=== PATIENT | female | born 1965 | race Caucasian/White ===

== ENCOUNTER → 2020-05-05 08:45 | Outpatient (BNVA) | payer OTHER, SELFPAY | PROVIDERS: PCP Nurse Practitioner; Visit Provider Obstetrics & Gynecology | DX: O24.919 Unspecified diabetes mellitus in pregnancy, unspecified trimester (principal); Z12.4 Encounter for screening for malignant neoplasm of cervix; Z12.11 Encounter for screening for malignant neoplasm of colon; Z78.0 Asymptomatic menopausal state | CPT/HCPCS: 83036; 84443; 88175 ==

== ENCOUNTER 2020-05-21 09:58 | Outpatient (CLI) | payer OTHER, SELFPAY ==
--- NOTE | 2020-05-21 10:30 | MM_ITS ---
WS: [id number] BILATERAL DIGITAL SCREENING MAMMOGRAPHY WITH CAD CLINICAL INFORMATION: Z12.39 - Encounter for other screening for malignant neoplasm of breast HISTORY: Screening mammogram. No current complaints. COMPARISON: 018 TECHNIQUE: Bilateral CC and MLO views. FINDINGS: Scattered fibroglandular densities bilaterally. No suspicious focal mass, asymmetry, calcifications, or architectural distortion. No evidence of malignancy. MM/[place] [id number] IMPRESSION: BI-RADS: 1-Negative FOLLOW UP: 1 Year Follow-up Recommend return to annual screening mammography.
== END 2020-05-21 09:59 | disposition home or self-care (01) ==
LOC: RADSHAW 10:00
PROVIDERS: PCP Nurse Practitioner; Visit Provider Obstetrics & Gynecology
DX: Z12.31 Encounter for screening mammogram for malignant neoplasm of breast (principal)
CPT/HCPCS: 77067

== ENCOUNTER 2020-06-01 08:19 | Day surgery (SDC) | payer OTHER, SELFPAY ==
[2020-05-28 12:40] VITALS: BMI 27.8
--- NOTE | 2020-06-01 08:44 | W.PM.OPSUD ---
Surgery/Procedure H&P Update DATE OF PROCEDURE: June 01, 2020 DATE H&P PERFORMED: 05/21/20 PREOP DIAGNOSIS: c PLANNED PROCEDURE: Operation Date: 06/01/20 09:30 Proposed Procedures p Colonoscopy z12.11 56295(Not Applicable) - Baltazar Mistry MD
[2020-06-01 08:46] VITALS: BP 142/99; PULSE 78; RESP 18; TEMP 36.3; O2SAT 100
[2020-06-01] MEDS: sodium chloride 0.9% 1,000 ML 30 ML IV (09:04)
--- NOTE | 2020-06-01 09:44 | ANES.PREANE2 ---
Pre-Anesthetic Assessment Pre-Anesthetic Assessment: Height/Weight: Height 1.5 m Weight 62.596 kg Temp Pulse Resp BP Pulse Ox 97.3 F L 78 18 142/99 100 06/01/20 08:46 06/01/20 08:46 06/01/20 08:46 06/01/20 08:46 06/01/20 08:46 Preop Diagnosis: c Proposed Procedure: Operation Date: 06/01/20 09:30 Proposed Procedures p Colonoscopy z12.11 25164(Not Applicable) - Baltazar Mistry MD Last intake: Intake Last Liquid Date 05/31/20 Last Solid Date 05/30/20 Social: Social History: No alcohol and No tobacco Exam: Pre-Anes Outpt Exam: alert and oriented x 3 Airway: Submandibular: WNL Cervical ROM: WNL MP: 2 History/ROS: No significant history except as noted Pulmonary: Pulmonary: None reported CV/HEM: CV/HEM: None reported : Comments: adrenal gland mass removed and nephrectomy Hepatic: Hepatic: None reported GI: GI: None reported Metabolic: Metabolic: Thyroid Musc/skel: Musc/skel: None reported Neuropsych: Neuropsych: Anxiety Anesthetic Plan: ASA status: 2 Anesthesia: MAC Meds/Allergies Current Medications: Current Medications Generic Name Dose Route Start Last Admin Trade Name Freq PRN Reason Stop Dose Admin Sodium Chloride 1,000 mls @ 30 ml s/hr 06/01/20 08:45 06/01/20 09:04 Sodium Chloride 0.9% IV 06/02/20 08:44 30 mls/hr .Q24H LYUBOV Administration PFSH Anesthesia PFSH: Medical History (Updated 05/21/20 @ 13:30 by Baltazar Mistry MD) History of hysteroscopy (~09/06/17) Endometrial morcellation--Dr. Franz Hypertension Hypothyroidism Patient denies medical problems Denies history of: Diabetes, heart, lung, liver, bleeding problems, or clotting problems Postmenopausal Patient came in referring that she has started [id number] estrogen supplement and started to spot again. The patient had been prescribed combine HRT but she did not get the prescription because she refers she cannot afford the medication because she doesn't have medical insurance. She wants to use over the counter medications. She was counseled regarding herbal remedies that they are not FDA control. Supplemental she was taking have black cohosh and soy isoflavones. She was counseled these ingredient have estrogenic effect and since she has a uterus this can cause estrogen effect of the endometrial lining and lead to unopposed hyperstimulation of the endometrium causing AUB and hyperplasia of the endometrium that can lead to endometrial CA. She refers that she now also started with an over the counter progesterone cream called Ultra Pro 50 derived from [employer]. Again she was counseled regarding the lack of software quality specialist, with these over the counter remedies. She was advised to F/U in 3months. Patient came for follow-up on labs ordered due to menopause. She refers hot flashes are getting worse since she started using the topical natural hormone replacement supplement. Was counseled again regarding the lack of effectiveness and software quality specialist on this natural supplements. She had been prescribed HRT but she refers she cannot afford medication. She will try to get Medicaid. She was counseled again regarding the benefits of HRT interior her vasomotor symptoms and beneficial effect on bone density. She brought in paperwork from a program that will supply her with the HRT at no-cost. Follow-up in 3 months. Postmenopausal bleeding Counseled regarding postmenopausal bleeding. She refers she has not experienced any bleeding and the frequency of have flashes has decrease with the use of topical natural estrogen replacement cream cheese has been using. She was counseled regarding this non-FDA approved supplements. She reffered she wants to continue using them. F/U 3 months. Surgical History History of back surgery (~2010) Lumbar spine History of partial adrenalectomy (~02/2015) Family History Unknown Hypertension Patient denies medical problems Denies family history of: Hypercholesterolemia, Thyroid problems, Breast Cancer, Ovarian Cancer, Uterine Cancer, Colon Cancer Father Diabetes Stroke Mother Heart disease Denies family history of Colon cancer Ovarian cancer Clotting disorder Hyperlipidemia Breast cancer Anesthesia complication Bleeding disorder Uterine cancer Thyroid condition Social History Smoking and tobacco status: never smoked Alcohol intake: current Alcohol intake frequency: holidays/special occasions only Alcohol type: beer, wine and hard liquor Data Anesthesia Cardiac Studies: No Data to Display
[2020-06-01 10:04] VITALS: BP 89/52; PULSE 82; RESP 16; TEMP 36.7; O2SAT 98
[2020-06-01 10:14] VITALS: BP 86/61; PULSE 70; RESP 16; O2SAT 98
== END 2020-06-01 10:35 | disposition home or self-care (01) ==
PROVIDERS: PCP Nurse Practitioner; Visit Provider Internal Medicine
PROC: 0DJD8ZZ Inspection of Lower Intestinal Tract, Via Natural or Artificial Opening Endoscopic (ICD-10-PCS; CPT 45378; principal; 2020-06-01 09:30)
DX: Z12.11 Encounter for screening for malignant neoplasm of colon (principal); I10 Essential (primary) hypertension; E03.9 Hypothyroidism, unspecified
CPT/HCPCS: 45378; 96360; G0121; J2704; J7030

== ENCOUNTER 2020-12-03 06:54 | Outpatient (CLI) | payer OTHER, SELFPAY ==
[2020-12-03 07:21] VITALS: BMI 27.6
--- NOTE | 2020-12-03 07:24 | NMCV_ITS ---
NM jim perf SPECT r/s* [id number] Elenita Lopez Age: 55 Gender: F : 1965 Exam Date: 12/03/2020 07:50 Ordering Phys: Nisha Beaver APN Technologist: LUBNA Kahn Exam Location: [facility] Indications: CHEST PAIN STRESS TEST Please see separate stress test report in [facility] for full findings IMAGE PROTOCOL Rest/Stress 1 Lexiscan Day Radiopharmaceutical Dose (mCi) Administration Site Administered by Rest: Tc-99m 10.9 IV LUBNA Cheema Sestamibi Stress:Tc-99m 32.8 IV LUBNA Kahn Sestamiyady Rest: 03-Dec-2020 60 Discovery 630 Stress: 03-Dec-2020 30 Discovery 630 0.4mg Lexiscan. Images obtained in supine and prone position. SPECT RESULTS Technical Quality: Excellent Raw Data Analysis: Normal Image Corrections: No attenuation or motion correction applied Summed Stress Score: 0 Summed Rest Score: 4 Summed Difference Score: 0 PERFUSION FINDINGS There is homogenous radiotracer uptake throughout the myocardium on stress. Attenuation artifact of the apical wall noted FUNCTIONAL RESULTS (calculated via Gated SPECT) Stress Image LV EF (%): 73 Stress EDV (mL):62 TID: 1.06 Stress ESV (mL):17 FUNCTIONAL FINDINGS: There is normal left ventricular systolic function. IMPRESSIONS 1. Normal myocardial perfusion imaging with no evidence of ischemia 2. LV systolic function is normal Luigi Valdovinos MD (Electronically Signed) Final Date: 04 December 2020 16:49 S
--- NOTE | 2020-12-03 07:24 | ECG_ITS ---
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 Interpretive Statements NAME OF STUDY: LEXISCAN SESTAMIBI STRESS TEST INDICATION: [Chest Pain, ] Procedure: At the baseline, the blood pressure was 152/96 mmHg with a heart rate of 65 bpm. The electrocardiogram showed normal sinus rhythm, normal axis with normal ST and T's. The Lexiscan was infused over a period of 20 seconds. A total of 0.4 mg of Lexiscan was infused. The stress phase was continued for a total of 5 minutes. Heart rate was at the end of stress phase was 82 bpm and a blood pressure of 135/83 mmHg. The EKG at the peak infusion revealed since normal sinus rhythm with no significant ST-T wave changes. Sestamibi was injected 20 seconds after the Lexiscan infusion. Blood pressure at the end of recovery phase was 136/82 mmHg with a heart rate of 81 bpm. Conclusion: 1. Normal EKG response to Lexiscan infusion 2. No Lexiscan induced chest pain or cardiac arrhythmia. 3. Normal blood pressure and heart rate response. 4. Sestamibi/sestamibi perfusion scan pending; see separate report. Electronically Signed On 12-28-2020 10:36:10 CASE RESOLUTION SPECIALIST by Luigi Valdovinos M.D. [email or web address]
[2020-12-03] MEDS: regadenoson 0.4 Mg/5 ml Syringe IVP (08:54)
[2020-12-03 09:08] VITALS: BP 136/82; PULSE 83
== END 2020-12-03 06:55 | disposition home or self-care (01) ==
LOC: CDL 06:56
PROVIDERS: PCP Nurse Practitioner; Visit Provider Nurse Practitioner
DX: R07.9 Chest pain, unspecified (principal)
CPT/HCPCS: 78452; 93017; A9500; J2785

== ENCOUNTER → 2021-05-25 10:50 | Outpatient (BNVA) | payer OTHER, SELFPAY | PROVIDERS: PCP Nurse Practitioner; Visit Provider Obstetrics & Gynecology | DX: Z12.39 Encounter for other screening for malignant neoplasm of breast (principal); Z12.4 Encounter for screening for malignant neoplasm of cervix | CPT/HCPCS: 87624 ==

== ENCOUNTER 2021-06-22 11:03 | Outpatient (CLI) | payer OTHER, SELFPAY ==
--- NOTE | 2021-06-22 11:17 | MM_ITS ---
WS: [id number] BILATERAL SCREENING 3D TOMOSYNTHESIS DIGITAL MAMMOGRAM WITH CAD HISTORY: Z12.39 - Encounter for other screening for malignant neoplasm. COMPARISON: 05/21/2020, 05/18/2017 Bilateral CC and MLO views submitted. Computer aided detection analyzed. Breast composition: There are scattered areas of fibroglandular density. No suspicious masses, microc alcifications or architectural distortion. Benign calcifications in each breast. MM/[place] [id number] IMPRESSION: BI-RADS: 2-Benign FOLLOW UP: 1 Year Follow-up
== END 2021-06-22 11:04 | disposition home or self-care (01) ==
LOC: RAD 11:04
PROVIDERS: PCP Nurse Practitioner; Visit Provider Nurse Practitioner
DX: Z12.31 Encounter for screening mammogram for malignant neoplasm of breast (principal)
CPT/HCPCS: 77063; 77067

== ENCOUNTER 2022-06-28 09:29 | Outpatient (CLI) | payer BC, SELFPAY ==
--- NOTE | 2022-06-28 09:39 | MM_ITS ---
WS: [id number] BILATERAL SCREENING DIGITAL TOMOSYNTHESIS MAMMOGRAM WITH CAD HISTORY: SCREENING COMPARISON: 06/22/2021, 05/21/2020 and 05/18/2017 Bilateral CC and MLO views with tomosynthesis and synthetic mammography submitted. Computer aided det ection analyzed. Breast composition: There are scattered areas of fibroglandular density. No suspicious masses, microc alcifications or architectural distortion. Focal asymmetry in the RIGHT MLO projection is similar to prior studies. MM/[place] [id number] IMPRESSION: BI-RADS: 2-Benign FOLLOW UP: 1 Year Follow-up
== END 2022-06-28 09:30 | disposition home or self-care (01) ==
LOC: RAD 09:31
PROVIDERS: PCP Nurse Practitioner; Visit Provider Obstetrics & Gynecology
DX: Z12.31 Encounter for screening mammogram for malignant neoplasm of breast (principal)
CPT/HCPCS: 77063; 77067

== ENCOUNTER 2023-08-17 10:49 | Outpatient (CLI) | payer OTHER, SELFPAY ==
--- NOTE | 2023-08-17 12:12 | MM_ITS ---
WS: [id number] SCREENING DIGITAL BREAST TOMOSYNTHESIS MAMMOGRAM WITH CAD HISTORY: SCREENING COMPARISON: 06/28/2022, 06/22/2021 and 05/21/2020 Bilateral CC and MLO with tomosynthesis and synthetic mammography submitted. Computer aided detection analyzed. Breast composition: There are scattered areas of fibroglandular density. New partially obscured mass measuring 8 x 6 mm in the mid to posterior LEFT breast, probably near 3:00. This has not been present on prior studies. Otherwise no change. MM/[place] [id number] IMPRESSION: BI-RADS: 0-Incomplete: Need additional imaging evaluation FOLLOW UP: Need Additional Imaging LEFT breast: Spot compression views (CC and MLO). True ML. Ultrasound to follow if abnormality persists.
== END 2023-08-17 10:50 | disposition home or self-care (01) ==
LOC: RAD 10:49
PROVIDERS: PCP Nurse Practitioner; Visit Provider Obstetrics & Gynecology
DX: Z12.31 Encounter for screening mammogram for malignant neoplasm of breast (principal); R92.323 Mammographic fibroglandular density, bilateral breasts; N63.25 Unspecified lump in the left breast, overlapping quadrants
CPT/HCPCS: 77063; 77067

== ENCOUNTER 2025-01-02 13:56 | Outpatient (CLI) | payer OTHER, SELFPAY ==
--- NOTE | 2025-01-02 14:00 | MM_ITS ---
WS: [id number] BILATERAL SCREENING DIGITAL TOMOSYNTHESIS MAMMOGRAM WITH CAD HISTORY: SCREENING COMPARISON: 08/17/2023, 06/28/2022, 06/22/2021 Bilateral CC and MLO views with tomosynthesis and synthetic mammography submitted. Computer aided detection analyzed. Breast composition: The breasts are heterogeneously dense, which may obscure small masses. No suspicious masses, microcalcifications or architectural distortion. Long-term stability partially obscured ovoid mass in the central LEFT breast. MM/MM scr tomosynthesis [id number] IMPRESSION: BI-RADS: 2 - Benign FOLLOW UP: 1 Year Follow-up
== END 2025-01-02 13:57 | disposition home or self-care (01) ==
PROVIDERS: PCP Nurse Practitioner; Visit Provider Family Medicine
DX: Z12.31 Encounter for screening mammogram for malignant neoplasm of breast (principal); R92.333 Mammographic heterogeneous density, bilateral breasts; N63.20 Unspecified lump in the left breast, unspecified quadrant
CPT/HCPCS: 77063; 77067